=== PATIENT | male | born 1990 ===

== ENCOUNTER 2021-01-29 19:15 | Emergency (ER) | payer SELFPAY ==
[2021-01-29] MEDS ORDERED: 0.9% SODIUM CHLORIDE 10 ML SYRINGE IVP ONE (19:16)
[2021-01-29] MEDS ORDERED: EPINEPHrine 1:10,000 [1 MG/10 ML] SYRINGE IVP ONE ×2 (19:16)
[2021-01-29 21:50] LABS: COVID AG,FIA SOURCE NASOPHARYNGEAL
== END 2021-01-29 21:27 ==
LOC: EMS 19:15
DX: I46.9 Cardiac arrest, cause unspecified (principal); Z20.822 Contact with and (suspected) exposure to COVID-19
CPT/HCPCS: 87426; 92950; 99285; J0171; U0003; X7700